=== PATIENT | female | born 1975 | race Caucasian/White ===

== ENCOUNTER → 2016-08-08 | Outpatient (CLI) | payer BC ==
--- NOTE | 2016-08-08 11:06 | DI ---
Indication: ITS.REASON: N39.0 UTI; N18.3 Chronic kidney disease, stage 3, I12.9, R80.9 PROCEDURE: US RENAL: Encounter: Initial Comparison: None Technique: Grayscale and color Doppler sonographic imaging of both kidneys was performed. FINDINGS: Left kidney is absent. Right kidney shows mild hydronephrosis which persists on the post void imaging. Right kidney measures 13.4 cm in length. No obvious renal stones. Gallstones were noted nearby incidentally. The bladder does not completely empty and shows some trabeculation. Prevoid bladder volume is 108.6 mL. Post void residual volume of 29.6 mL. No renal masses appreciated. No obvious hydroureter. Impression: Mild right hydronephrosis. .
== END ==
LOC: IMA 10:14
PROVIDERS: ATTEND Internal Medicine Nephrology
DX: N13.30 Unspecified hydronephrosis (principal); N39.0 Urinary tract infection, site not specified; N18.3 Chronic kidney disease, stage 3 (moderate); I12.9 Hypertensive chronic kidney disease with stage 1 through stage 4 chronic kidney disease, or unspecified chronic kidney disease; R80.9 Proteinuria, unspecified

== ENCOUNTER → 2016-08-11 | Outpatient (CLI) | payer BC ==
--- NOTE | 2016-08-11 16:21 | DI ---
Indication: ITS.REASON: N18.3 CKD, STAGE 3; I12.9 HYPERTENSIVE; N39.0 UTI; N13.[address] RENAL W/O CONTRAST: Comparison: Renal ultrasound 08/08/2016 Technique: Patient is scanned from above the diaphragm to below the pubic symphysis utilizing dose reduction imaging technology. Neither oral nor IV contrast is used. Reformatted sagittal and coronal images provided. Findings: Heart size and lung bases are unremarkable. Patient shows a normal-sized spleen. Liver is homogeneous in texture and shows no significant masses. Stomach showed some radiopaque medication within it. Patient has almost no mesenteric fat which does make visualization of intra-abdominal organs more difficult. The patient shows only the right kidney which is consistent with the history of previous left renal resection. No abnormal stones or obvious cysts or masses are seen. No contrast was used. Retroperitoneum is showing no definitive abnormality. Without contrast is difficult to assess the renal vessels. Imaging into the pelvis showed scattered gas and stool. No significant free air or free fluid is identified. Some calcifications are seen on both sides of the pelvis which are somewhat indeterminant and probably vascular. Overall size of the right kidney seen unremarkable. There does not appear to be marked cortical thinning. Reformatted imaging showed no acute bony abnormality. Impression: 1. Only a single right kidney without significant obstructive uropathy, masses cysts or abnormal calcifications. 2. No additional acute findings. No obstruction to bowel identified. Moderate gas and stool is appreciated. .
== END ==
LOC: IMA 14:57
PROVIDERS: ATTEND Internal Medicine Nephrology
DX: I12.9 Hypertensive chronic kidney disease with stage 1 through stage 4 chronic kidney disease, or unspecified chronic kidney disease (principal); N18.3 Chronic kidney disease, stage 3 (moderate); N39.0 Urinary tract infection, site not specified; N13.30 Unspecified hydronephrosis; Z90.5 Acquired absence of kidney